=== PATIENT | male | born 1960 | race Caucasian/White ===

== ENCOUNTER 2018-01-05 15:28 | Observation (INO) ==
[2018-01-05] MEDS ORDERED: Sod Chloride 0.9% Inj 1,000 ML IV.SIG ONE (16:21)
[2018-01-05] MEDS ORDERED: Aspirin 325 MG Tablet PO ONE (16:21)
[2018-01-05 16:48] LABS: Baso # (Auto) 0.1 th/mm3 (0.0-0.2); Baso % (Auto) 0.8 % (0.0-2.0); Eos # (Auto) 0.1 th/mm3 (0.0-0.4); Eos % (Auto) 1.5 % (0.0-4.0); Hematocrit 43.2 % (39.0-51.0); Hemoglobin 14.6 gm/dL (13.0-17.0); Lymph # (Auto) 1.8 th/mm3 (1.0-4.8); Lymph % (Auto) 21.7 % (9.0-44.0); Mean Corpuscular HGB Conc 33.9 % (32.0-36.0); Mean Corpuscular Hemoglobin 29.8 pg (27.0-34.0); Mean Corpuscular Volume 87.7 fL (80.0-100.0); Mean Platelet Volume 9.1 fL (7.0-11.0); Mono # (Auto) 0.5 th/mm3 (0.0-0.9); Mono % (Auto) 6.2 % (0.0-8.0); Neut # (Auto) 5.8 th/mm3 (1.8-7.7); Neut % (Auto) 69.8 % (16.0-70.0); Platelet Count 198 th/mm3 (150-450); Red Blood Count 4.92 mil/mm3 (4.50-5.90); Red Cell Distribution Width 14.2 % (11.6-17.2); White Blood Count 8.3 th/mm3 (4.0-11.0)
[2018-01-05 16:58] LABS: INR 1.1 Ratio; Prothrombin Time 10.8 sec (9.8-11.6)
--- NOTE | 2018-01-05 17:00 | XR ---
EXAM DATE: 01/05/2018 4:52 PM EDT AGE/SEX: 57 years / Male INDICATIONS: Chest pain. CLINICAL DATA: This is the patient's initial encounter. Patient reports that signs and symptoms have been present for 1 day and indicates a pain score of 4/10. MEDICAL/SURGICAL HISTORY: None. None. COMPARISON: No prior exams available for comparison. FINDINGS: 2 AP portable semierect views of the chest demonstrates the lungs to be symmetrically aerated without evidence of mass, infiltrate or effusion. The cardiomediastinal contours are unremarkable. Osseous structures are intact. CONCLUSION: No acute cardiopulmonary disease. Electronically signed by: Pako Nuñez MD 01/05/2018 4:59 PM EDT
[2018-01-05 17:21] LABS: Anion Gap 8 meq/L (5-15); Blood Urea Nitrogen 16 mg/dL (7-18); Carbon Dioxide 26.1 meq/L (21.0-32.0); Chloride 104 meq/L (98-107); Glomerular Filtration Rate 74 mL/min (>89); Glucose,Random 93 mg/dL (74-106); Potassium 4.5 meq/L (3.5-5.1); Sodium 138 meq/L (136-145)
--- NOTE | 2018-01-05 17:33 | ED ---
HPI General Chief Complaint: Dizziness Stated Complaint: Dizziness/Cardiac/Dr sent Time Seen by Provider: 01/05/18 16:10 Source: patient Mode of arrival: ambulatory Limitations: no limitations History of Present Illness HPI Narrative: 57-year-old male with PMH of CAD status post MA presents the ED for evaluation of intermittent dizziness. Gradual onset over the last couple days. Patient states today he had an episode where "I thought I might pass out. " He endorses accompanying nausea. Symptoms resolved on presentation. 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 He denies associated headache, vision changes, chest pain, palpitations, abdominal pain, vomiting, changes in bowel habits, dysuria, difficulties with word finding, facial droop or slurred speech, weakness or limitations to range of motion of the extremities. Patient states that he recently began taking several medications after undergoing a stress test with his md physician dermatologist, . He states that he was told he has an EF of 25%. He states that they are in the process of arranging a cardiac cath. He endorses multiple first-degree family members with cardiac issues including his father of an MA. He has a 20+ pack year smoking history. He states that he called his doctor's office today and was instructed to come to the ED for further evaluation. Related Data Home Medications Medication Instructions Recorded Confirmed apixaban [Eliquis] 5 mg PO BID 01/05/18 01/05/18 aspirin 81 mg PO DAILY 01/05/18 01/05/18 atorvastatin [Lipitor] 20 mg PO HS 01/05/18 01/05/18 carvedilol [Coreg] 6.25 mg PO BID 01/05/18 01/05/18 cholecalciferol (vitamin D3) 25 mcg PO BID 01/05/18 01/05/18 [Vitamin D3] lisinopril 10 mg PO DAILY 01/05/18 01/05/18 varenicline [Chantix] 1 mg PO BID 01/05/18 01/05/18 Allergies Allergy/AdvReac Type Severity Reaction Status Date / Time No Known Allergies Allergy Uncoded 07/02/15 13:15 Review of Systems Except as stated in HPI: all other systems reviewed are negative [facility] Medical History Medical History COPD (chronic obstructive pulmonary disease) (Chronic) Cardiomyopathy (Chronic) Smoker (Chronic) Left bundle branch block (LBBB) (Chronic) Myocardial infarct (Acute) Surgical History Surgical History H/O arthroscopic knee surgery (Acute) No history of previous surgery (Acute) Social History Social History Substance History: No History of Abuse Second Hand Smoke Exposure: Yes Smoking Status: Light tobacco smoker Tobacco Type: Cigarettes Packs Per Day: 1 Cigarettes Per Day: 20.0 Years Smoked: 25 Pack-Years: 25.00 How Often Do You Have a Drink Containing Alcohol: Monthly or less Recent Travel in [facility] within the Last 8 Weeks: No Recent Out of Country Travel within the Last 8 Weeks: No Immunization History Tetanus Immunization: Unsure Hx Influenza Vaccine This Season: No Exam Narrative Exam Narrative: GENERAL: Well-developed, well-nourished white male no acute distress. SKIN: Focused skin assessment garcia, warm/dry. HEAD: Atraumatic. Normocephalic. EYES: Pupils equal and round. No scleral icterus. No injection or drainage. ENT: No nasal bleeding or discharge. Mucous membranes pink and moist. NECK: Trachea midline. No JVD. CARDIOVASCULAR: Regular rate and rhythm. No murmur appreciated. RESPIRATORY: No accessory muscle use. Clear to auscultation. Breath sounds equal bilaterally. GASTROINTESTINAL: Abdomen soft, non-tender, nondistended. Hepatic and splenic margins not palpable. MUSCULOSKELETAL: No obvious deformities. No clubbing. No cyanosis. No edema. NEUROLOGICAL: Awake and alert. Cranial nerves II through XII grossly intact. No pronator drift. 5/5 strength in muscle groups of the extremities. Normal speech. PSYCHIATRIC: Appropriate mood and affect; insight and judgment normal. Course Initial Documented Vital Signs Temperature 97.9 F 01/05/18 15:47 Pulse Rate 70 01/05/18 15:47 Respiratory Rate 16 01/05/18 15:47 Blood Pressure 134/63 01/05/18 15:47 Pulse Oximetry 97 01/05/18 15:47 Last Documented Vital Signs Temperature 98.7 F 01/06/18 12:03 Pulse Rate 76 01/06/18 12:19 Respiratory Rate 20 01/06/18 12:19 Blood Pressure 99/60 L 01/06/18 12:19 Pulse Oximetry 97 01/06/18 12:19 Medical Decision Making DELTA Attestation DELTA supervised visit: Yes Attestation: I, Dr. Keller, have reviewed the advance practice practitioner's documentation and am in agreement, met with the patient face to face, made the diagnosis, and the medical decision making was done by me. *My assessment and Findings: I was in the room during this patient's initial with he is awake and alert and fully oriented. He does not appear to be in any acute distress. Vital signs are unremarkable. He does give a history of significant ischemic cardiomyopathy. Please see Kiesha Gtz PA-C's note for a more detailed H&P, final diagnosis and disposition MDM Narrative Medical decision making narrative: 57-year-old male with PMH of CAD status post MA presents the ED for evaluation of intermittent dizziness and near syncopal episode today. Symptoms resolved on presentation. Patient has several cardiac risk factors and is under the care of Dr. Jacoby Salamanca. He states that he recently had a positive stress test and is arranging for heart cath. He notes right carotid stenosis of ~50%. Vitals reviewed. Physical exam is reassuring. No focal neuro deficits noted. IV was established. Patient was administered 1 L normal saline. EKG: Rate 68, sinus rhythm with a left bundle branch block. This is known to the patient. NE interval 145, QRS 144, QTc [address] changes noted. Reviewed by Dr. Keller. CXR: No acute findings. CT brain: No acute findings. No concerning abnormalities of CBC, CMP, UA or cardiac enzymes. Given his significant risk factors will admit for further evaluation. Consult placed with cardiology. I spoke with Dr. Forrest who agrees to accept the patient the medicine service. Please see medicine and cardiology notes for disposition. Differential Diagnosis Differential Diagnosis: TIA versus CVA versus ACS versus medication side effect versus heat related syncope versus metabolic derangement versus other Lab Data Result diagrams: 01/05/18 16:30 01/05/18 16:30 Lab Results 01/05/18 01/05/18 01/05/18 Range/Units 16:30 16:30 16:30 WBC 8.3 (4.0-11.0) th/mm3 RBC 4.92 (4.50-5.90) mil/mm3 Hgb 14.6 (13.0-17.0) gm/dL Hct 43.2 (39.0-51.0) % MCV 87.7 (80.0-100.0) fL MCH 29.8 (27.0-34.0) pg MCHC 33.9 (32.0-36.0) % RDW 14.2 (11.6-17.2) % Plt Count 198 (150-450) th/mm3 MPV 9.1 (7.0-11.0) fL Neut % (Auto) 69.8 (16.0-70.0) % Lymph % (Auto) 21.7 (9.0-44.0) % Alcorn % (Auto) 6.2 (0.0-8.0) % Eos % (Auto) 1.5 (0.0-4.0) % Baso % (Auto) 0.8 (0.0-2.0) % Neut # (Auto) 5.8 (1.8-7.7) th/mm3 Lymph # (Auto) 1.8 (1.0-4.8) th/mm3 Alcorn # (Auto) 0.5 (0.0-0.9) th/mm3 Eos # (Auto) 0.1 (0.0-0.4) th/mm3 Baso # (Auto) 0.1 (0.0-0.2) th/mm3 WBC Differential . Differential Comment Auto diff final PT 10.8 (9.8-11.6) sec INR 1.1 Ratio Sodium 138 (136-145) meq/L Potassium 4.5 (3.5-5.1) meq/L Chloride 104 (98-107) meq/L Carbon Dioxide 26.1 (21.0-32.0) meq/L Anion Gap 8 (5-15) meq/L BUN 16 (7-18) mg/dL Creatinine 1.04 (0.60-1.30) mg/dL Estimated GFR 74 L (>89) mL/min Random Glucose 93 (74-106) mg/dL Calcium 9.0 (8.5-10.1) mg/dL Troponin I Less than 0.02 L (0.02-0.05) ng/mL Urine Color (Yellw/Straw) Urine Clarity (Clear) Urine pH (5.0-8.5) Ur Specific [place] (1.002-1.035) Urine Protein (Neg-Trace) mg/dL Urine Glucose (UA) (Negative) mg/dL Urine Ketones (Negative) mg/dL Urine Occult Blood (Negative) Urine Nitrate (Negative) Urine Bilirubin (Negative) Urine Urobilinogen (Less than 2) mg/dL Ur Leukocyte Esterase (Negative) Urine RBC (0-3) /hpf Urine WBC (0-5) /hpf Urine Bacteria (None) /hpf Micro UA Comment Urine Culture Comments 01/05/18 01/05/18 01/06/18 Range/Units 19:40 21:55 05:45 WBC (4.0-11.0) th/mm3 RBC (4.50-5.90) mil/mm3 Hgb (13.0-17.0) gm/dL Hct (39.0-51.0) % MCV (80.0-100.0) fL MCH (27.0-34.0) pg MCHC (32.0-36.0) % RDW (11.6-17.2) % Plt Count (150-450) th/mm3 MPV (7.0-11.0) fL Neut % (Auto) (16.0-70.0) % Lymph % (Auto) (9.0-44.0) % [place] % (Auto) (0.0-8.0) % Eos % (Auto) (0.0-4.0) % Baso % (Auto) (0.0-2.0) % Neut # (Auto) (1.8-7.7) th/mm3 Lymph # (Auto) (1.0-4.8) th/mm3 Alcorn # (Auto) (0.0-0.9) th/mm3 Eos # (Auto) (0.0-0.4) th/mm3 Baso # (Auto) (0.0-0.2) th/mm3 WBC Differential Differential Comment PT (9.8-11.6) sec INR Ratio Sodium (136-145) meq/L Potassium (3.5-5.1) meq/L Chloride (98-107) meq/L Carbon Dioxide (21.0-32.0) meq/L Anion Gap (5-15) meq/L BUN (7-18) mg/dL Creatinine (0.60-1.30) mg/dL Estimated GFR (>89) mL/min Random Glucose (74-106) mg/dL Calcium (8.5-10.1) mg/dL Troponin I Less than 0.02 L Less than 0.02 L (0.02-0.05) ng/mL Urine Color Yellow (Yellw/Straw) Urine Clarity Clear (Clear) Urine pH 6.0 (5.0-8.5) Ur Specific [place] 1.009 (1.002-1.035) Urine Protein Negative (Neg-Trace) mg/dL Urine Glucose (UA) Negative (Negative) mg/dL Urine Ketones Negative (Negative) mg/dL Urine Occult Blood Small H (Negative) Urine Nitrate Negative (Negative) Urine Bilirubin Negative (Negative) Urine Urobilinogen 2.0 H (Less than 2) mg/dL Ur Leukocyte Esterase Negative (Negative) Urine RBC Less than 1 (0-3) /hpf Urine WBC Less than 1 (0-5) /hpf Urine Bacteria Rare H (None) /hpf Micro UA Comment Culture not ind Urine Culture Comments Culture not ind Imaging Data Radiologist's impression: Chest X-Ray 01/05/18 16:21 CONCLUSION: No acute cardiopulmonary disease. Head CT 01/05/18 16:21 CONCLUSION: Discharge Plan Discharge Disposition Patient Disposition: 30 Still Patient Discharge Condition Condition: Stable Discharge Order Discharge Orders: Discharge Order (Routine); Ordered 01/06/18 Ordered By: Meggan Fitzgerald Cardiology Clear for Discharge (Routine); Ordered 01/06/18 Ordered By: Ruel Pulido Discharge Details Anticipated Discharge Date: 01/06/18 Diagnosis: Near syncope Physicians Team ED Provider: Nikki Keller ED Midlevel Provider: Kiesha Gtz Primary Care Provider: Toño Forrest Attending Provider: Wood Knox Other Providers: Jacoby Salamanca Status ED Status: Left Department Discharge Information Discharge Date/Time: 01/05/18 22:03
--- NOTE | 2018-01-05 17:42 | CT ---
EXAM DATE: 01/05/2018 5:39 PM EDT AGE/SEX: 57 years / Male INDICATIONS: Dizziness. CLINICAL DATA: This is the patient's initial encounter. Patient reports that signs and symptoms have been present for 1 day and indicates a pain score of 0/10. MEDICAL/SURGICAL HISTORY: Myocardial infarction. Left bundle branch block. None. RADIATION DOSE: 56.35 CTDI (mGy) COMPARISON: No prior exams available for comparison. TECHNIQUE: CT of the head without contrast. Using automated exposure control and adjustment of the mA and/or kV according to patient size, radiation dose was kept as low as reasonably achievable to ob tain optimal diagnostic quality images. DICOM format image data is available electronically for revi ew and comparison. FINDINGS: Cerebrum: The ventricles are normal for age. No evidence of midline shift, mass lesion, hemorrhage or acute infarction. No extraaxial fluid collections are seen. Posterior Fossa: The cerebellum and brainstem are intact. The 4th ventricle is midline. The cerebe llopontine angle is unremarkable. Extracranial: The visualized portion of the orbits is intact. There are small retention cysts in the maxillary sinus. Skull: The calvaria is intact. No evidence of skull fracture. 1. Negative noncontrast head CT. . Electronically signed by: Pako Nuñez MD 01/05/2018 5:40 PM EDT
[2018-01-05 20:48] LABS: Bacteria,Urine Rare /hpf; Bilirubin,Urine Negative (Negative); Clarity,Urine Clear (Clear); Color,Urine Yellow (Yellw/Straw); Glucose,Urine (UA) Negative (Negative); Leukocyte Esterase,Urine Negative (Negative); Nitrite,Urine Negative (Negative); Specific Gravity,Urine 1.009 (1.002-1.035)
--- NOTE | 2018-01-05 21:29 | P.HP ---
History of Present Illness Service: [facility] adult medicine service Primary Care Physician: Toño Forrest MD, PhD Chief Complaint: Near fainting episode History of Present Illness: 57-year-old male who recently established with me as outpatient on November 25 this year with PMH of CAD status post OK presents the ED for evaluation of intermittent dizziness. Gradual onset over the last couple days. Patient states today he had an episode where "I thought I might pass out." He endorses accompanying nausea. Symptoms resolved on presentation. 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 Patient reports that he had felt dizzy most of the morning but around 2 PM the afternoon felt especially lightheaded and nearly passed out. He reports he was able to stabilize himself by holding onto the bucket of a scrap iron loader tractor. He then rested in his truck with the air conditioning running. He contacted his driller helper's office who advised him to come to the ER given that he had a recently abnormal Lexiscan stress test and that they had planned an outpatient heart catheterization. He denies associated headache, vision changes, chest pain, palpitations, abdominal pain, vomiting, changes in bowel habits, dysuria, difficulties with word finding , facial droop or slurred speech, weakness or limitations to range of motion of the extremities. Patient states that he recently began taking several medications after undergoing a stress test with his driller helper, . Review of the Lexiscan stress test done December 22 reveals moderate size basal to apical inferior and inferior to septal infarct pattern. EF was calculated at 46 % but had previously been calculated at 30-35% on echo done in November of this year. He states that he was told he has an EF of 35%. He states that they are in the process of arranging a cardiac cath. He endorses multiple first-degree family members with cardiac issues including his father of an OK. He has a 20+ pack year smoking history but has cut down to 4 cigarettes per day. He is currently taking Chantix to help stop smoking. ER evaluation reveals healthy -appearing male who is comfortable. He denies any current symptomatology. Says he felt much better since he has been in the air conditioned area and taking fluids. He reports that approximately 10 years ago he had significant cardiac workup in [place] which demonstrated some mild cardiomyopathy, prior OK and recurrent bouts of atrial fibrillation. He also has known left bundle branch block. He was on several medications at that time including beta- monica as well as some "blood thinners". He reports that his symptoms resolved and he was in the process of moving out of the area so he was cardiac workup or follow-up. He typically works outside and is otherwise been asymptomatic. It is noted that he has recently been started on atorvastatin, carvedilol, Eliquis, and spironolactone which may have contributed to some of his symptomatology earlier today. - Diagnosis (1) Near syncope (2) COPD (chronic obstructive pulmonary disease) (3) Cardiomyopathy (4) Left bundle branch block (LBBB) (5) Smoker (6) Paroxysmal A-fib Review of Systems Constitutional: Reports fatigue, Reports lack of energy Eyes: Denies blind spots, Denies blurry vision, Denies bulging eyes, Denies change in vision, Denies double vision, Denies discharge, Denies dry eyes, Denies floaters, Denies irritation, Denies itchy eyes, Denies loss of vision, Denies pain, Denies requires corrective lenses, Denies sensitivity to light, Denies other Ears, Nose, Mouth, and Throat: Denies abnormal hearing, Denies bleeding gums, Denies bad breath, Denies change in voice, Denies dental pain, Denies difficulty swallowing, Denies dizziness, Denies dry mouth, Denies ear discharge , Denies ear pain, Denies facial pain, Denies headache(s), Denies hearing loss, Denies hoarseness, Denies lip swelling, Denies nosebleed, Denies mouth lesions, Denies mouth pain, Denies nasal congestion, Denies nasal discharge, Denies nasal obstruction, Denies nasal trauma, Denies neck lump, Denies neck pain, Denies nose pain, Denies pain with swallowing, Denies poor balance, Denies post nasal drip, Denies ringing in the ears, Denies sinus pain, Denies sinus pressure , Denies sore throat, Denies throat swelling, Denies tongue swelling, Denies other Cardiovascular: Reports irregular heart rhythm, Reports rapid, pounding, or irregular heartbeat, Denies chest pain, Denies chest pain at rest, Denies chest pain with activity, Denies excessive sweating, Denies fainting, Denies fast heart rate, Denies foot swelling, Denies generalized swelling, Denies leg pain with activity, Denies leg sores, Denies leg swelling, Denies lightheadedness, Denies radiating jaw, neck or arm pain, Denies shortness of breath with activity , Denies shortness of breath when lying down, Denies shortness of breath causing sudden awakening, Denies slow heart rate, Denies other Respiratory: Denies change in phlegm color, Denies chest congestion, Denies cough, Denies coughing up blood, Denies excessive phlegm production, Denies pain on inspiration, Denies pain with cough, Denies shortness of breath, Denies shortness of breath with activity, Denies snoring, Denies stridor, Denies wheezing, Denies other Gastrointestinal: Denies abdominal pain, Denies belching, Denies black, tarry stools, Denies bloating, Denies bright, red blood in stools, Denies change in bowel habits, Denies constant urge to pass stool, Denies change in stools, Denies coffee ground vomit, Denies constipation, Denies cramping, Denies difficulty swallowing, Denies excessive passing of gas, Denies feeling full early, Denies heartburn, Denies incontinent of stools, Denies loose stools, Denies nausea, Denies pain with swallowing, Denies vomiting, Denies vomiting blood, Denies other Musculoskeletal: Reports back pain Skin/Breast: Denies acne, Denies bleeding lesions, Denies boil, Denies breast swelling, Denies breast skin changes, Denies breast pain, Denies breast lump, Denies change in breast shape, Denies change in hair, Denies change in skin color, Denies changing lesions, Denies dry skin, Denies excessive hair growth, Denies hair loss, Denies itching, Denies lesions, Denies nail changes, Denies new lesions, Denies nipple discharge, Denies non-healing lesions, Denies redness , Denies sensitivity to light, Denies rash, Denies skin pain, Denies skin ulcer , Denies sores, Denies stretch hung, Denies unusual bruising, Denies wounds, Denies yellowing of the skin, Denies other Neurologic: Denies abnormal hearing, Denies abnormal movements, Denies abnormal speech, Denies abnormal walking, Denies behavioral changes, Denies burning sensations, Denies confusion, Denies dizziness, Denies fainting, Denies frequent falls, Denies headache(s), Denies lack of coordination, Denies localized weakness, Denies loss of vision, Denies memory loss, Denies numbness, Denies other visual disturbances, Denies radiating pain, Denies restless legs, Denies convulsions, Denies seizure-like activity, Denies sensory deficit, Denies tingling, Denies tingling/numbness/burning sensations, Denies tremor(s), Denies unsteadiness, Denies weakness, Denies other Endocrine: Reports excessive sweating PMFSH - History History Provided By: Patient - Medical History Medical History: Medical History (Last Updated 01/05/18 @ 21:19 by Toño Forrest MD, PhD) COPD (chronic obstructive pulmonary disease) (Chronic) Cardiomyopathy (Chronic) Smoker (Chronic) Left bundle branch block (LBBB) (Chronic) Myocardial infarct - Surgical History Surgical History: Surgical History (Last Updated 01/05/18 @ 21:20 by Toño Forrest MD, PhD) H/O arthroscopic knee surgery No history of previous surgery - Tobacco History Second Hand Smoke Exposure: Yes Tobacco Use In Past 30 Days: Yes Smoking Status: Current some day smoker Tobacco Type: Cigarettes Packs Per Day: 1 Years Smoked: 25 - Alcohol History How Often Do You Have a Drink Containing Alcohol: Monthly or less - Substance Use History Substance History: No History of Abuse - Travel History Recent Travel in the [place] Within the Last 8 Weeks: No Recent Travel Out of the Country Within the Last 8 Weeks: No - Immunization History Tetanus Immunization: <5 Years Tetanus Immunization Year if Known: 2015 Hx Influenza Vaccine This Season: No Medications and Allergies Active Medications: Active Medications Sodium Chloride (Ns Flush) 2 ml IV.FLUSH PRN PRN PRN Reason: FLUSH AFTER USING IV ACCESS Allergies Allergy/AdvReac Type Severity Reaction Status Date / Time No Known Allergies Allergy Uncoded 07/02/15 13:15 Home Medications Medication Instructions Recorded Confirmed Type apixaban [Eliquis] 5 mg PO BID 01/05/18 01/05/18 History aspirin 81 mg PO DAILY 01/05/18 01/05/18 History atorvastatin [Lipitor] 20 mg PO HS 01/05/18 01/05/18 History carvedilol [Coreg] 6.25 mg PO BID 01/05/18 01/05/18 History lisinopril 10 mg PO DAILY 01/05/18 01/05/18 History spironolactone [Aldactone] 12.5 mg PO QAM 01/05/18 01/05/18 History varenicline [Chantix] 1 mg PO BID 01/05/18 01/05/18 History Exam Vital signs: Vital Signs 01/05/18 15:47 01/05/18 16:02 01/05/18 20:02 Temperature 97.9 F 98.2 F Pulse Rate 70 82 72 Respiratory Rate 16 17 20 Blood Pressure 134/63 166/77 H 142/72 H Pulse Oximetry 97 99 Intake & Output 01/05/18 01/05/18 01/06/18 06:59 18:59 06:59 Intake Total 1000 / 1000 Balance 1000 / 1000 Weight 96.162 kg Intake: IV 1000 / 1000 NS Inj 1,000 ML @ Wide Open IV. 1000 / 1000 SIG BOLUS ONE Rx#:[id number] Narrative: GENERAL: No acute distress, alert and oriented. Cooperative. Muscular build. SKIN: Warm and dry. HEAD: Atraumatic. Normocephalic. EYES: Pupils equal and round. No scleral icterus. No injection or drainage. Extraocular motions intact. ENT: No nasal bleeding or discharge. Mucous membranes pink and moist. NECK: Trachea midline. No JVD. CARDIOVASCULAR: Regular rate and rhythm. No significant murmurs. RESPIRATORY: No accessory muscle use. Clear to auscultation. Breath sounds equal bilaterally. GASTROINTESTINAL: Abdomen soft, non-tender, nondistended. Hepatic and splenic margins not palpable. MUSCULOSKELETAL: Extremities without clubbing, cyanosis, or edema. No obvious deformities. NEUROLOGICAL: Awake and alert. No obvious cranial nerve deficits. Motor grossly within normal limits. Five out of 5 muscle strength in the arms and legs. Normal speech. PSYCHIATRIC: Appropriate mood and affect; insight and judgment normal. Results - Labs CBC & Chem 7: 01/05/18 16:30 01/05/18 16:30 Labs: Laboratory Results - last 24 hr 01/05/18 01/05/18 01/05/18 16:30 16:30 16:30 WBC 8.3 RBC 4.92 Hgb 14.6 Hct 43.2 MCV 87.7 MCH 29.8 MCHC 33.9 RDW 14.2 Plt Count 198 MPV 9.1 Neut % (Auto) 69.8 Lymph % (Auto) 21.7 Charles % (Auto) 6.2 Eos % (Auto) 1.5 Baso % (Auto) 0.8 Neut # (Auto) 5.8 Lymph # (Auto) 1.8 [place] # (Auto) 0.5 Eos # (Auto) 0.1 Baso # (Auto) 0.1 WBC Differential . Differential Comment Auto diff final PT 10.8 INR 1.1 Sodium 138 Potassium 4.5 Chloride 104 Carbon Dioxide 26.1 Anion Gap 8 BUN 16 Creatinine 1.04 Estimated GFR 74 L Random Glucose 93 Calcium 9.0 Troponin I Less than 0.02 L Urine Color Urine Clarity Urine pH Ur Specific [place] Urine Protein Urine Glucose (UA) Urine Ketones Urine Occult Blood Urine Nitrate Urine Bilirubin Urine Urobilinogen Ur Leukocyte Esterase Urine RBC Urine WBC Urine Bacteria Micro UA Comment Urine Culture Comments 01/05/18 19:40 WBC RBC Hgb Hct MCV MCH MCHC RDW Plt Count MPV Neut % (Auto) Lymph % (Auto) [place] % (Auto) Eos % (Auto) Baso % (Auto) Neut # (Auto) Lymph # (Auto) [place] # (Auto) Eos # (Auto) Baso # (Auto) WBC Differential Differential Comment PT INR Sodium Potassium Chloride Carbon Dioxide Anion Gap BUN Creatinine Estimated GFR Random Glucose Calcium Troponin I Urine Color Yellow Urine Clarity Clear Urine pH 6.0 Ur Specific [place] 1.009 Urine Protein Negative Urine Glucose (UA) Negative Urine Ketones Negative Urine Occult Blood Small H Urine Nitrate Negative Urine Bilirubin Negative Urine Urobilinogen 2.0 H Ur Leukocyte Esterase Negative Urine RBC Less than 1 Urine WBC Less than 1 Urine Bacteria Rare H Micro UA Comment Culture not ind Urine Culture Comments Culture not ind - Imaging Impressions Chest X-Ray 01/05/18 16:21 CONCLUSION: Head CT 01/05/18 16:21 CONCLUSION: Caprini VTE Risk Assessment Caprini VTE Risk Assessment: Moderate/High Risk (score >= 2) Caprini Risk Assessment Model: Point Value = 1 Point Value = 2 Point Value = 3 Point Value = 5 Age 41-60 Minor surgery BMI > 25 kg/m2 Swollen legs Varicose veins or History of unexplained or recurrent spontaneous Oral contraceptives or hormone replacement Sepsis (< 1 month) Serious lung disease, including pneumonia (< 1 month) Abnormal pulmonary function Acute myocardial infarction Congestive heart failure (< 1 month) History of inflammatory bowel disease Medical patient at bed rest Age 61-74 Arthroscopic surgery Major open surgery (> 45 min) Laparoscopic surgery (> 45 min) Malignancy Confined to bed (> 72 hours) Immobilizing plaster cast Central venous access Age >= 75 History of VTE Family history of VTE Factor V Leiden Prothrombin [id number] Lupus anticoagulant Anticardiolipin antibodies Elevated serum homocysteine Heparin-induced thrombocytopenia Other congenital or acquired thrombophilia Stroke (< 1 month) Elective arthroplasty Hip, pelvis, or leg fracture Acute spinal cord injury (< 1 month) Prophylaxis Regimen: Total Risk Factor Score Risk Level Prophylaxis Regimen 0-1 Low Early ambulation 2 Moderate Order ONE of the following: *Sequential Compression Device (SCD) *Heparin 5000 units SQ BID 3-4 Higher Order ONE of the following medications: *Heparin 5000 units SQ TID *Enoxaparin/Lovenox 40 mg SQ daily (WT < 150 kg, CrCl > 30 mL/min) *Enoxaparin/Lovenox 30 mg SQ daily (WT < 150 kg, CrCl > 10-29 mL/min) *Enoxaparin/Lovenox 30 mg SQ BID (WT < 150 kg, CrCl > 30 mL/min) AND/OR *Sequential Compression Device (SCD) 5 or more Highest Order ONE of the following medications: *Heparin 5000 units SQ TID (Preferred with Epidurals) *Enoxaparin/Lovenox 40 mg SQ daily (WT < 150 kg, CrCl > 30 mL/min) *Enoxaparin/Lovenox 30 mg SQ daily (WT < 150 kg, CrCl > 10-29 mL/min) *Enoxaparin/Lovenox 30 mg SQ BID (WT < 150 kg, CrCl > 30 mL/min) AND *Sequential Compression Device (SCD) Assessment and Plan - Assessment (1) Near syncope Code(s): R55 - Syncope and collapse Status: Acute Plan: Possibly associated with mild dehydration and resultant hypotension given recent medications. Will hold diuretics for now. Patient is asymptomatic presently. Patient reports he had similar episodes about 10 years ago when he was having arrhythmias. Will place on telemetry. Have cardiology see the patient as outpatient cath was planned and he had recent abnormal stress test (2) COPD (chronic obstructive pulmonary disease) Code(s): J44.9 - Chronic obstructive pulmonary disease, unspecified Status: Chronic Plan: Relatively quiescent. Will monitor and manage expectantly. Encouraged him to stop smoking (3) Cardiomyopathy Code(s): I42.9 - Cardiomyopathy, unspecified Status: Chronic Plan: Evaluation per cardiology. We will not repeat echo as one has been done within the last month or so and he had a Lexiscan stress test just a week or so ago. No overt failure. (4) Left bundle branch block (LBBB) Code(s): I44.7 - Left bundle-branch block, unspecified Status: Chronic Plan: Chronic, stable. (5) Smoker Code(s): F17.200 - Nicotine dependence, unspecified, uncomplicated Status: Chronic Plan: Continue Chantix as outpatient. NicoDerm patch here. (6) Paroxysmal A-fib Code(s): I48.0 - Paroxysmal atrial fibrillation Status: Acute Plan: continue Eliquis, but will hold tonight as he may have cath tomorrow. - Plan Code Status: Full Discussed Condition With: Patient and ER provider
--- NOTE | 2018-01-06 08:12 | P.CONCA ---
History of Present Illness Primary Care Provider: Toño Forrest MD, PhD Chief Complaint: Near fainting episode History of Present Illness: 57-year-old male with a past medical history of old AR, paroxysmal atrial fibrillation, recently diagnosed cardiomyopathy EF 35% who presented after near syncopal episode. 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 He has been trying to stay hydrated, but yesterday he was feeling lightheaded like he was going to pass out, denies LOC. Patient was diagnosed and is currently being worked up this month for new onset cardiomyopathy. He has recently been started on lisinopril, carvedilol, spironolactone, atorvastatin. He has noticed a little more fatigue since starting these new medications. He had a Lexiscan done this month which showed moderate inferior and inferoseptal infarct pattern, no ischemia. He has noticed a few seconds of right-sided chest aching over the past few days, but denies any chest pain or shortness of breath. He states he gets palpitations with his atrial fibrillation maybe once a year, none recently. EKG shows known left bundle branch block. Troponins negative. No significant dehydration or hypotension noted. Received IVF bolus in the ED. Review of Systems All other systems reviewed negative except as stated in HPI PMFSH - History History Provided By: Patient - Medical History Medical History: Medical History (Last Updated 01/05/18 @ 21:19 by Toño Forrest MD, PhD) COPD (chronic obstructive pulmonary disease) (Chronic) Cardiomyopathy (Chronic) Smoker (Chronic) Left bundle branch block (LBBB) (Chronic) Myocardial infarct - Surgical History Surgical History: Surgical History (Last Updated 01/05/18 @ 21:20 by Toño Forrest MD, PhD) H/O arthroscopic knee surgery No history of previous surgery - Tobacco History Second Hand Smoke Exposure: Yes Tobacco Use In Past 30 Days: Yes Smoking Status: Light tobacco smoker Tobacco Type: Cigarettes Packs Per Day: 1 Years Smoked: 25 - Alcohol History How Often Do You Have a Drink Containing Alcohol: Monthly or less - Substance Use History Substance History: No History of Abuse - Travel History Recent Travel in the [place] Within the Last 8 Weeks: No Recent Travel Out of the Country Within the Last 8 Weeks: No - Immunization History Tetanus Immunization: <5 Years Tetanus Immunization Year if Known: 2015 Hx Influenza Vaccine This Season: No Medications and Allergies Active Medications: Active Medications Aspirin (Ecotrin) 81 mg PO DAILY [facility] Atorvastatin Calcium (Lipitor) 20 mg PO HS [facility] Carvedilol (Coreg) 6.25 mg PO BID [facility] Lisinopril (Prinivil) 10 mg PO DAILY [facility] Nicotine (Habitrol 14 Mg Patch.24 Hr) 1 patch T-DERMAL DAILY [facility] Sodium Chloride (Ns Flush) 2 ml IV.FLUSH PRN PRN PRN Reason: FLUSH AFTER USING IV ACCESS Varenicline (Chantix) 1 mg PO BID [facility] Allergies Allergy/AdvReac Type Severity Reaction Status Date / Time No Known Allergies Allergy Uncoded 07/02/15 13:15 Home Medications Medication Instructions Recorded Confirmed Type apixaban [Eliquis] 5 mg PO BID 01/05/18 01/05/18 History aspirin 81 mg PO DAILY 01/05/18 01/05/18 History atorvastatin [Lipitor] 20 mg PO HS 01/05/18 01/05/18 History carvedilol [Coreg] 6.25 mg PO BID 01/05/18 01/05/18 History cholecalciferol (vitamin D3) 25 mcg PO BID 01/05/18 01/05/18 History [Vitamin D3] lisinopril 10 mg PO DAILY 01/05/18 01/05/18 History spironolactone [Aldactone] 12.5 mg PO QAM 01/05/18 01/05/18 History varenicline [Chantix] 1 mg PO BID 01/05/18 01/05/18 History Exam Vital signs: Vital Signs 01/05/18 15:47 01/05/18 16:02 01/05/18 20:02 Temperature 97.9 F 98.2 F Pulse Rate 70 82 72 Respiratory Rate 16 17 20 Blood Pressure 134/63 166/77 H 142/72 H Pulse Oximetry 97 99 01/05/18 22:26 01/05/18 23:14 01/06/18 00:00 Temperature 98.2 F 98.6 F Pulse Rate 59 L 70 64 Respiratory Rate 20 18 Blood Pressure 142/69 H 102/55 L Pulse Oximetry 99 95 01/06/18 03:39 Temperature 97.7 F Pulse Rate 66 Respiratory Rate 18 Blood Pressure 114/64 Pulse Oximetry 96 Intake & Output 01/05/18 01/06/18 01/06/18 18:59 06:59 18:59 Intake Total 1000 / 1000 0 / 0 Balance 1000 / 1000 0 / 0 Weight 212 lb 212 lb 0.015 oz Intake: IV 1000 / 1000 NS Inj 1,000 ML @ Wide Open IV. 1000 / 1000 SIG BOLUS ONE Rx#:[id number] Oral 0 / 0 Other: # Voids 3 Weight On Admission 212 lb 0.015 oz Narrative: GENERAL: Well-developed well-nourished. In no acute distress. NECK: No carotid bruits. No JVD. CARDIOVASCULAR: Regular rate and rhythm. No murmur appreciated. RESPIRATORY: No accessory muscle use. Clear to auscultation. Breath sounds equal bilaterally. MUSCULOSKELETAL: No clubbing or cyanosis. No edema. NEUROLOGICAL: Awake and alert. Normal speech. Results 01/05/18 16:30 01/05/18 16:30 Cardiac Enzymes 01/05/18 01/05/18 01/06/18 Range/Units 16:30 21:55 05:45 Troponin I Less than 0.02 L Less than 0.02 L Less than 0.02 L (0.02-0.05) ng/mL Coagulation 01/05/18 Range/Units 16:30 PT 10.8 (9.8-11.6) sec CBC 01/05/18 Range/Units 16:30 WBC 8.3 (4.0-11.0) th/mm3 RBC 4.92 (4.50-5.90) mil/mm3 Hgb 14.6 (13.0-17.0) gm/dL Hct 43.2 (39.0-51.0) % Plt Count 198 (150-450) th/mm3 Neut # (Auto) 5.8 (1.8-7.7) th/mm3 Lymph # (Auto) 1.8 (1.0-4.8) th/mm3 [place] # (Auto) 0.5 (0.0-0.9) th/mm3 Eos # (Auto) 0.1 (0.0-0.4) th/mm3 Baso # (Auto) 0.1 (0.0-0.2) th/mm3 Comprehensive Metabolic Panel 01/05/18 Range/Units 16:30 Sodium 138 (136-145) meq/L Potassium 4.5 (3.5-5.1) meq/L Chloride 104 (98-107) meq/L Carbon Dioxide 26.1 (21.0-32.0) meq/L BUN 16 (7-18) mg/dL Creatinine 1.04 (0.60-1.30) mg/dL Calcium 9.0 (8.5-10.1) mg/dL Intake and Output 01/05/18 01/06/18 01/06/18 22:59 06:59 14:59 Intake Total 1000 / 1000 0 / 0 Balance 1000 / 1000 0 / 0 Intake: IV 1000 / 1000 NS Inj 1,000 ML @ Wide Open IV. 1000 / 1000 SIG BOLUS ONE Rx#:[id number] Oral 0 / 0 Other: # Voids 3 Weight 212 lb 0.015 oz Weight On Admission 212 lb 0.015 oz Assessment and Plan - Plan 57-year-old male with a past medical history of old AR, paroxysmal atrial fibrillation, recently diagnosed cardiomyopathy EF 35% who presented after near syncopal episode Near syncope: Possibly due to dehydration as patient was out in the heat and was recently started on diuretic, DC spironolactone. Check outpatient Holter monitor to rule out any arrhythmogenic cause. Otherwise, recent comprehensive workup completed as outpatient and no indication for LHC at this time. Cardiomyopathy: BP and heart rate are acceptable, continue lisinopril carvedilol and outpatient follow-up. Okay to discharge home from a cardiology perspective. Discussed Condition With: Patient, hospitalist, Dr. Pulido
[2018-01-06] MEDS ORDERED: Varenicline 1 MG Tablet PO SCH (09:00)
[2018-01-06] MEDS ORDERED: Lisinopril 10 MG Tablet PO SCH (09:00)
[2018-01-06] MEDS ORDERED: Carvedilol 6.25 MG Tablet PO SCH (09:00)
--- NOTE | 2018-01-06 09:17 | P.PNIM ---
Subjective Interval history: Pt denies any further dizziness He reports that he feels that the symptoms he was experiencing was due to the new medications he was started on for his cardiomyopathy. Pt has a hx of paroxysmal atrial fibrillation but has not had any noted episodes of A. fib on telemetry since admission. He had a recent outpt Lexiscan on 12/22/17 which noted a moderate size basal to apical inferior and inferior to septal infarct pattern. EF was calculated at 46 %. Previously his EF had been calculated at 30-35% on echo done in November 2017. Pt denies any chest pain, palpitations, SOB, nausea, or diaphoresis. Of note he does report that when he had his heart attack 11 years ago that he never had chest pain at that time either, only dizziness. Physical Exam Vital signs: Vital Signs 01/05/18 15:47 01/05/18 16:02 01/05/18 20:02 Temperature 97.9 F 98.2 F Pulse Rate 70 82 72 Respiratory Rate 16 17 20 Blood Pressure 134/63 166/77 H 142/72 H Pulse Oximetry 97 99 01/05/18 22:26 01/05/18 23:14 01/06/18 00:00 Temperature 98.2 F 98.6 F Pulse Rate 59 L 70 64 Respiratory Rate 20 18 Blood Pressure 142/69 H 102/55 L Pulse Oximetry 99 95 01/06/18 03:39 01/06/18 08:00 01/06/18 08:18 Temperature 97.7 F 98 F Pulse Rate 66 54 L 66 Respiratory Rate 18 18 Blood Pressure 114/64 120/70 Pulse Oximetry 96 96 Intake & Output 01/05/18 01/06/18 01/06/18 18:59 06:59 18:59 Intake Total 1000 / 1000 0 / 0 Balance 1000 / 1000 0 / 0 Weight 96.162 kg 96.162 kg Intake: IV 1000 / 1000 NS Inj 1,000 ML @ Wide Open IV. 1000 / 1000 SIG BOLUS ONE Rx#:[id number] Oral 0 / 0 Other: # Voids 3 Weight On Admission 96.162 kg Narrative: General: NAD, AAOx3 Chest: CTA bilaterally Cardiac: Regular Abd: +BS, soft ND/NT Ext: No edema Results - Labs CBC & Chem 7: 01/05/18 16:30 01/05/18 16:30 Laboratory Results - last 24 hr 01/05/18 01/05/18 01/05/18 16:30 16:30 16:30 WBC 8.3 RBC 4.92 Hgb 14.6 Hct 43.2 MCV 87.7 MCH 29.8 MCHC 33.9 RDW 14.2 Plt Count 198 MPV 9.1 Neut % (Auto) 69.8 Lymph % (Auto) 21.7 Lassen % (Auto) 6.2 Eos % (Auto) 1.5 Baso % (Auto) 0.8 Neut # (Auto) 5.8 Lymph # (Auto) 1.8 Lassen # (Auto) 0.5 Eos # (Auto) 0.1 Baso # (Auto) 0.1 WBC Differential . Differential Comment Auto diff final PT 10.8 INR 1.1 Sodium 138 Potassium 4.5 Chloride 104 Carbon Dioxide 26.1 Anion Gap 8 BUN 16 Creatinine 1.04 Estimated GFR 74 L Random Glucose 93 Calcium 9.0 Troponin I Less than 0.02 L Urine Color Urine Clarity Urine pH Ur Specific [place] Urine Protein Urine Glucose (UA) Urine Ketones Urine Occult Blood Urine Nitrate Urine Bilirubin Urine Urobilinogen Ur Leukocyte Esterase Urine RBC Urine WBC Urine Bacteria Micro UA Comment Urine Culture Comments 01/05/18 01/05/18 01/06/18 19:40 21:55 05:45 WBC RBC Hgb Hct MCV MCH MCHC RDW Plt Count MPV Neut % (Auto) Lymph % (Auto) [place]assen % (Auto) Eos % (Auto) Baso % (Auto) Neut # (Auto) Lymph # (Auto) Lassen # (Auto) Eos # (Auto) Baso # (Auto) WBC Differential Differential Comment PT INR Sodium Potassium Chloride Carbon Dioxide Anion Gap BUN Creatinine Estimated GFR Random Glucose Calcium Troponin I Less than 0.02 L Less than 0.02 L Urine Color Yellow Urine Clarity Clear Urine pH 6.0 Ur Specific [place] 1.009 Urine Protein Negative Urine Glucose (UA) Negative Urine Ketones Negative Urine Occult Blood Small H Urine Nitrate Negative Urine Bilirubin Negative Urine Urobilinogen 2.0 H Ur Leukocyte Esterase Negative Urine RBC Less than 1 Urine WBC Less than 1 Urine Bacteria Rare H Micro UA Comment Culture not ind Urine Culture Comments Culture not ind - Imaging Impressions Chest X-Ray 01/05/18 16:21 CONCLUSION: Head CT 01/05/18 16:21 CONCLUSION: Assessment and Plan - Assessment (1) Near syncope Code(s): R55 - Syncope and collapse Status: Acute Plan: Near Syncope Dizziness - Pt is a 57 y/o male with Hx of CAD/PA, paroxysmal atrial fibrillation, COPD, tobacco use and recently diagnosed cardiomyopathy with EF 35%. - Pt presented to the ED after a near syncopal episode while at work on 01/05 while working outside in the heat. - Patient was recently diagnosed with cardiomyopathy in November 2017 and was started on lisinopril, carvedilol, spironolactone, and atorvastatin. He has noticed a little more fatigue since starting these new medications. - He had a Lexiscan 12/22/17 which showed moderate inferior and inferoseptal infarct pattern, no ischemia. - Pt received IVF bolus in the ED. - In the ED EKG shows known left bundle branch block. - Serial Troponins are negative. - His labs don't reveal significant dehydration and no hypotension noted. - No cardiac dysrhythmias noted on telemetry so far. - Discussed the case with Cardiology this morning and they have ordered for outpt Holter monitor - They are recommending stopping Aldactone at this time - No inpatient LHC planned at this time. - Pt will need to followup as an outpt with Dr. Pulido or Dr. Salamanca - Pt will need to followup with his PCP, Dr. Forrest as well Cardiomyopathy - Cont. BB, Jarvis - Cont. to monitor BP at home as he was doing previously. No reported hypotension at home. Paroxysmal atrial fibrillation - Cont. BB and Eliquis COPD Tobacco use - Cont. Chantix and weaning off tobacco use The exam, history, and the medical decision-making described in the above note were completed with the assistance of the mid-level provider. I reviewed and agree with the findings presented. I attest that I had a [id number] encounter with the patient on the same day, and personally performed and documented my assessment and findings in the medical record. Pt cleared by cardioology. outpt event monitor. stop aldactone. no arrhythmia during this observation. (2) COPD (chronic obstructive pulmonary disease) Code(s): J44.9 - Chronic obstructive pulmonary disease, unspecified Status: Chronic (3) Cardiomyopathy Code(s): I42.9 - Cardiomyopathy, unspecified Status: Chronic (4) Smoker Code(s): F17.200 - Nicotine dependence, unspecified, uncomplicated Status: Chronic (5) Left bundle branch block (LBBB) Code(s): I44.7 - Left bundle-branch block, unspecified Status: Chronic
[2018-01-06 12:04] VITALS: TEMP 98.7; O2SAT 97
--- NOTE | 2018-01-06 12:18 | ECG ---
Date Performed: 01/05/2018 Time Performed: 23:44:15 PTAGE: 57 years EKG: Sinus rhythm LEFT BUNDLE BRANCH BLOCK ABNORMAL ECG PREVIOUS TRACING : 01/05/2018 16.08 Since the previous tracing, no significant change noted DOCTOR: Chance Diane Interpretating Date/Time 01/06/2018 12:18:15
[2018-01-06 12:21] VITALS: BP 99/60; PULSE 76; RESP 20
--- NOTE | 2018-01-07 14:10 | ECG ---
Date Performed: 01/05/2018 Time Performed: 16:08:28 PTAGE: 57 years EKG: Sinus rhythm LEFT BUNDLE BRANCH BLOCK ABNORMAL ECG NO PREVIOUS TRACING DOCTOR: Michoacano Olguin Interpretating Date/Time 01/07/2018 14:08:08
== END 2018-01-06 13:25 | disposition home or self-care (01) ==
LOC: NEDA 15:28 → NEPC 15:28 → NEPHCDU 15:28
PROVIDERS: ADMIT Hospitalist; ATTEND Hospitalist